=== PATIENT | female | born 1930 | race Caucasian/White ===

== ENCOUNTER 2016-09-13 09:41 | Emergency (ER) | payer MEDICARE, BC ==
[2016-09-13 09:53] VITALS: TEMP 98.5; BMI 34.4
[2016-09-13 10:15] LABS: AUTOMATED BASOPHIL 0.3 % (0-2); AUTOMATED EOSINOPHIL 0.9 % (0-5); AUTOMATED LYMPH 15.8 % (17-44); AUTOMATED MONOCYTE 5.3 % (3-10); AUTOMATED NEUTROPHIL 77.7 % (45-76); MPV 6.7 fL (7.4-10.4)
[2016-09-13 10:18] LABS: RBC/URINE 0-2 (0-5); WBC/URINE 30-40 (0-5)
[2016-09-13 10:20] LABS: LEUKOCYTES/URINE NEG (NEGATIVE); NITRITE/URINE NEG (NEGATIVE); URINE OCCULT BLOOD NEG (NEG/TRACE)
[2016-09-13 10:31] LABS: BLOOD UREA NITROGEN 12 MG/DL (7-17); CALCIUM 9.8 MG/DL (8.4-10.2); CALCULATED OSMOLALITY 261 MOs/Kg (270-290); CHLORIDE 97 mEq/L (98-107); GLUCOSE 150 MG/DL (70-99); PARTIAL THROMB. TIME 26.8 SEC (22-35); SODIUM LEVEL 134 mEq/L (137-146); TOTAL PROTEIN 7.4 G/DL (6.3-8.2)
--- NOTE | 2016-09-13 13:01 | EDPRACDOC ---
- General Information Chief Complaint: Abdominal Pain Stated Complaint: ABD PAIN, DARK STOOL Time Seen by Provider: 09/13/16 11:53 Information Source: Patient Mode Of Arrival: Car Home Medications: Home Medications Acetaminophen [Tylenol Extra Strength] 1,000 mg PO BID PRN 11/16/13 Clopidogrel Bisulfate [Plavix] 75 mg PO QAM 11/16/13 FA/Multivits-Min/Lycopene/Lut [Sentry Senior Multivit Caplet] 1 tab PO QAM 11/16 Nizatidine 150 mg PO HS 11/16/13 Pantoprazole Sodium [Protonix] 40 mg PO QAM 11/16/13 Perphenazine/Amitriptyline HCl [Perphen-Amitrip 2 mg-10 mg Tab] 1 tab PO BID Potassium Chloride [Klor-Con M20] 20 meq PO BID 11/16/13 Spironolact/Hydrochlorothiazid [Spironolactone-Hctz 25-25 Tab] 1 tab PO QAM Polyethylene Glycol 3350 [Miralax] 17 gm PO DAILY PRN #10 powd.pack 11/17/13 Alendronate Sodium [Fosamax] 70 mg PO Q7D 08/15/16 Loratadine [Claritin] 10 mg PO DAILY PRN 08/15/16 Losartan Potassium [Cozaar] 100 mg PO QAM 08/15/16 Metoprolol Tartrate [Lopressor] 12.5 mg PO QAM 08/15/16 Simvastatin [Zocor] 20 mg PO HS 08/15/16 Ascorbate Calcium/Bioflav [Betzaida-C 500 mg Tablet (500 mg/200 mg)] 1 tab PO BID 09/13/16 Calcium Carbonate/Vitamin D3 [Calcium 600 + D3 Softgel] 1 cap PO DAILY 09/13/16 Pantoprazole Sodium [Protonix] 40 mg PO DAILY #30 tab 09/13/16 Ranitidine HCl [Zantac] 150 mg PO DAILY #60 tablet 09/13/16 Tramadol HCl 50 mg PO Q6 PRN #20 tablet 09/13/16 Vit A/C/E AC/Znox/Cupric Oxide [Eye Vitamin-Minerals Tablet] 1 tab PO DAILY Allergies/Adverse Reactions: Allergies Allergy/AdvReac Type Severity Reaction Status Date / Time acetaminophen Allergy Unknown Verified 08/15/16 13:43 [From Darvocet-N 100] caffeine [From Panlor SS] Allergy Unknown Verified 08/15/16 13:43 citalopram hydrobromide Allergy Unknown Verified 08/15/16 13:43 [From Celexa] codeine Allergy Unknown Verified 08/15/16 13:43 diclofenac sodium Allergy Unknown Verified 08/15/16 13:43 [From Arthrotec 50] dihydrocodeine bitartrate Allergy Unknown Verified 08/15/16 13:43 [From Panlor SS] doxycycline Allergy Unknown Verified 08/15/16 13:43 erythromycin base Allergy Unknown Verified 08/15/16 13:43 [Erythromycin Base] Iodinated Contrast Media - Allergy Rash-Locali Verified 08/15/16 13:43 IV Dye zed iodine Allergy Unknown Verified 08/15/16 13:43 lansoprazole [From Prevacid] Allergy Unknown Verified 08/15/16 13:43 lisinopril [From Zestril] Allergy Unknown Verified 08/15/16 13:43 metoclopramide HCl Allergy Unknown Verified 08/15/16 13:43 [From Reglan] misoprostol Allergy Unknown Verified 08/15/16 13:43 [From Arthrotec 50] Penicillins Allergy Unknown Verified 08/15/16 13:43 Tetracyclines Allergy See Unverified 08/15/16 13:43 Comments MOLDS Allergy Unknown Uncoded 08/15/16 13:43 - History of Present Illness Onset: 3 DAYS HPI: C/o epigastric pain and black tarry stools getting worse x 3 days. Denies fever , N/V/D, dizzyness, CP, sob, change in urine. Pt on plavix. Surgical hx = mike , hernia repair, hysterectomy, all over 5 yrs ago. Pain Location: Reports: Epigastric Pain Context: Reports: Spontaneous Pain Severity: Moderate Pain Quality: Reports: Burning Pain Radiation: Reports: No Radiation Control Method: Reports: Hysterectomy Adult Abdominal History: Reports: Abdominal Surgery Female Abdominal History: Reports: Abdominal Surgery Modifying Factors: improves with: Nothing Oral Intake: Decreased Urinary Output: Normal ED Past Medical History - History Reviewed Yes Nurses notes reviewed and agree except as marked - Patient Medical History Neurological History: Reports: Cerebrovascular Accident (TIA) Cardiac History: Reports: Hypertension, Cardiac Catheterization Musculoskeletal History: Reports: Arthritis Psychological History: Reports: Depression Systemic History: Reports: Anemia, Diabetes. Denies: Cancer Surgical History: Reports: Cholecystectomy, Hysterectomy, Cardiac Catheterization, Hernia Surgery, Tonsillectomy/Adnoidectomy - Family Medical History Reports: Hypertension (parents), Cardiac Disorders (mother). Denies: Diabetes, Cancer, Stroke - Social Medical History Smoking Status: Never smoker EDM Review of Systems - Review of Systems ROS Negative Except as Marked: Yes All systems reviewed and were negative except as marked Gastrointestinal: Pain - Physical Exam Constitutional: Alert Oriented to: Time, Person, Place Last recorded Vital Signs: Last Vital Signs Temp 98.5 F 09/13/16 09:48 Pulse 81 09/13/16 15:07 Resp 18 09/13/16 15:07 BP 147/77 09/13/16 15:07 Pulse Ox 96 09/13/16 15:07 Oxygen Pulse Oxygen Saturation 96 O2 Device Room Air Oxygen Flow Rate Fraction of Inspired Oxygen ( FIO2) - HEENT Head: Normal Eye Exam: negative: Conjunctival Injection, Scleral Icterus Oropharynx: negative: Drooling TMJ: Normal Nose: No Symptoms Reported Neck: Normal - Respiratory/Cardiovascular Respiratory: Normal - CTA Cardiovascular: Normal - GI Auscultation: Normal Palpation: Normal Tenderness: Moderate, Epigastric Quiroz's Sign: Negative - Musculoskeletal Back: Normal Extremities: Normal - Integumentary Skin: Normal - Neurologic Mood Description: Normal Thought: Coherent Perception: Normal - Results 09/13/16 09:58 09/13/16 09:58 WBC 6.9 xk/uL (3.8-10.8) 09/13/16 09:58 RBC 4.87 xM/uL (4.20-5.40) 09/13/16 09:58 Hgb 14.8 g/dL (12.0-16.0) 09/13/16 09:58 Hct 43.5 % (36-47) 09/13/16 09:58 MCV 89 fL (81-99) 09/13/16 09:58 MCH 30.5 pg (27-32) 09/13/16 09:58 MCHC 34.2 g/dl (33-36) 09/13/16 09:58 RDW 13.2 % (11.5-14.5) 09/13/16 09:58 Plt Count 231 xk/uL (130-400) 09/13/16 09:58 MPV 6.7 fL (7.4-10.4) L 09/13/16 09:58 Neut % (Auto) 77.7 % (45-76) H 09/13/16 09:58 Lymph % (Auto) 15.8 % (17-44) L 09/13/16 09:58 [place] % (Auto) 5.3 % (3-10) 09/13/16 09:58 Eos % (Auto) 0.9 % (0-5) 09/13/16 09:58 Baso % (Auto) 0.3 % (0-2) 09/13/16 09:58 Absolute Neuts (auto) 5.31 xk/uL (1.7-8.2) 09/13/16 09:58 Absolute Lymphs (auto) 1.04 xk/uL (0.65-4.75) 09/13/16 09:58 PT 10.7 SEC (9.2-11.2) 09/13/16 09:58 INR 1.0 09/13/16 09:58 APTT 26.8 SEC (22-35) 09/13/16 09:58 Sodium 134 mEq/L (137-146) L 09/13/16 09:58 Potassium 4.1 mEq/L (3.5-5.1) 09/13/16 09:58 Chloride 97 mEq/L (98-107) L 09/13/16 09:58 Carbon Dioxide 21 mMOL/L (22-33) L 09/13/16 09:58 Anion Gap 20 mEq/L (8-16) H 09/13/16 09:58 BUN 12 MG/DL (7-17) 09/13/16 09:58 Creatinine 0.60 MG/DL (0.52-1.04) 09/13/16 09:58 Estimated GFR (MDRD) > 60 mL/min (>=60) 09/13/16 09:58 Glucose 150 MG/DL (70-99) H 09/13/16 09:58 Calculated Osmolality 261 MOs/Kg (270-290) L 09/13/16 09:58 Calcium 9.8 MG/DL (8.4-10.2) 09/13/16 09:58 Total Bilirubin 0.7 MG/DL (0.2-1.3) 09/13/16 09:58 AST 33 IU/L (14-36) 09/13/16 09:58 ALT 27 IU/L (9-52) 09/13/16 09:58 Alkaline Phosphatase 66 IU/L (55-165) 09/13/16 09:58 Total Protein 7.4 G/DL (6.3-8.2) 09/13/16 09:58 Albumin 4.5 G/DL (3.5-5.0) 09/13/16 09:58 Lipase 55 U/L (23-300) 09/13/16 09:58 Urine Color Yellow 09/13/16 10:02 Urine Clarity Clear 09/13/16 10:02 Urine pH 7.0 (5.0-8.0) 09/13/16 10:02 Ur Specific [place] 1.005 (1.003-1.035) 09/13/16 10:02 Urine Protein Neg (NEG/TRACE) 09/13/16 10:02 Urine Glucose (UA) Neg (NEGATIVE) 09/13/16 10:02 Urine Ketones Neg (NEGATIVE) 09/13/16 10:02 Urine Occult Blood Neg (NEG/TRACE) 09/13/16 10:02 Urine Nitrite Neg (NEGATIVE) 09/13/16 10:02 Urine Bilirubin Neg (NEGATIVE) 09/13/16 10:02 Urine Urobilinogen 0.2 MG/DL (0-1) 09/13/16 10:02 Ur Leukocyte Esterase Neg (NEGATIVE) 09/13/16 10:02 Urine RBC 0-2 (0-5) 09/13/16 10:02 Urine WBC 30-40 (0-5) H 09/13/16 10:02 Ur Epithelial Cells 1+ 09/13/16 10:02 Urine Bacteria 1+ (NEG/FEW) H 09/13/16 10:02 Blood Type A POSITIVE 09/13/16 09:58 Antibody Screen Negative 09/13/16 09:58 Lab Results 09/13/16 09/13/16 09/13/16 10:02 09:58 09:58 WBC RBC Hgb Hct MCV MCH MCHC RDW Plt Count MPV Neut % (Auto) Lymph % (Auto) [place] % (Auto) Eos % (Auto) Baso % (Auto) Absolute Neuts (auto) Absolute Lymphs (auto) PT 10.7 INR 1.0 APTT 26.8 Sodium Potassium Chloride Carbon Dioxide Anion Gap BUN Creatinine Estimated GFR (MDRD) Glucose Calculated Osmolality Calcium Total Bilirubin AST ALT Alkaline Phosphatase Total Protein Albumin Lipase 55 Urine Color Yellow Urine Clarity Clear Urine pH 7.0 Ur Specific [place] 1.005 Urine Protein Neg Urine Glucose (UA) Neg Urine Ketones Neg Urine Occult Blood Neg Urine Nitrite Neg Urine Bilirubin Neg Urine Urobilinogen 0.2 Ur Leukocyte Esterase Neg Urine RBC 0-2 Urine WBC 30-40 H Ur Epithelial Cells 1+ Urine Bacteria 1+ H Blood Type Antibody Screen 09/13/16 09/13/16 09/13/16 09:58 09:58 09:58 WBC 6.9 RBC 4.87 Hgb 14.8 Hct 43.5 MCV 89 MCH 30.5 MCHC 34.2 RDW 13.2 Plt Count 231 MPV 6.7 L Neut % (Auto) 77.7 H Lymph % (Auto) 15.8 L [place] % (Auto) 5.3 Eos % (Auto) 0.9 Baso % (Auto) 0.3 Absolute Neuts (auto) 5.31 Absolute Lymphs (auto) 1.04 PT INR APTT Sodium 134 L Potassium 4.1 Chloride 97 L Carbon Dioxide 21 L Anion Gap 20 H BUN 12 Creatinine 0.60 Estimated GFR (MDRD) > 60 Glucose 150 H Calculated Osmolality 261 L Calcium 9.8 Total Bilirubin 0.7 AST 33 ALT 27 Alkaline Phosphatase 66 Total Protein 7.4 Albumin 4.5 Lipase Urine Color Urine Clarity Urine pH Ur Specific [place] Urine Protein Urine Glucose (UA) Urine Ketones Urine Occult Blood Urine Nitrite Urine Bilirubin Urine Urobilinogen Ur Leukocyte Esterase Urine RBC Urine WBC Ur Epithelial Cells Urine Bacteria Blood Type A POSITIVE Antibody Screen Negative - Diagnostic Imaging Abdomen Image interpreted by: Radiologist 09/13/16 14:43 EXAM: DG ABDOMEN ACUTE W/ 1V CHEST COMPARISON: CT of the abdomen and pelvis on 11/17/2013 FINDINGS: There is no evidence of dilated bowel loops or free intraperitoneal air. No radiopaque calculi or other significant radiographic abnormality is seen. Stable spondylosis of the lumbar spine. Heart size and mediastinal contours are within normal limits. There is no evidence of pulmonary edema, consolidation, pneumothorax, nodule or pleural fluid. IMPRESSION: Negative abdominal radiographs. No acute cardiopulmonary disease. Electronically Signed By: Roney Coleman M.D. On: 09/13/2016 14:35 - Additional Information hemoccult NEG Decision Time to Discharge: 14:43 - Departure Disposition: Home Condition: Stable Final Diagnosis: Gastric ulcer Qualifiers: Gastric ulcer chronicity: unspecified ulcer chronicity Gastric ulcer complication status: without hemorrhage or perforation Qualified Code(s): K25.9 - Gastric ulcer, unspecified as acute or chronic, without hemorrhage or perforation Instructions: Peptic Ulcer (ED), Acute Abdominal Pain (ED) Education/Counseling Given To: Patient, Family Member Education/Counseling Given Regarding: Diagnosis, Treatment, Prognosis, Follow Up Referrals: Theresa Lawler MD [Primary Care Provider] - One Week Cyrus Gottlieb MD [Staff Physician] - One Week Prescriptions: Pantoprazole Sodium [Protonix] 40 mg PO DAILY #30 tab Ranitidine HCl [Zantac] 150 mg PO DAILY #60 tablet Tramadol HCl 50 mg PO Q6 PRN #20 tablet PRN Reason: Pain Additional Instructions: Follow up with primary care and GI specialist Dr Garcia. Continue to take home rx for protonix. Return to ED for any new or worsening symptoms.
--- NOTE | 2016-09-13 14:38 | DIRPT ---
CLINICAL DATA: Epigastric abdominal pain. EXAM: DG ABDOMEN ACUTE W/ 1V CHEST COMPARISON: CT of the abdomen and pelvis on 11/17/2013 FINDINGS: There is no evidence of dilated bowel loops or free intraperitoneal air. No radiopaque calculi or other significant radiographic abnormality is seen. Stable spondylosis of the lumbar spine. Heart size and mediastinal contours are within normal limits. There is no evidence of pulmonary edema, consolidation, pneumothorax, nodule or pleural fluid. IMPRESSION: Negative abdominal radiographs. No acute cardiopulmonary disease. Electronically Signed By: Roney Coleman M.D. On: 09/13/2016 14:35
[2016-09-13 15:33] VITALS: BP 147/77; PULSE 81
== END 2016-09-13 15:07 | disposition home or self-care (01) ==
LOC: ED 09:41
DX: K25.9 Gastric ulcer, unspecified as acute or chronic, without hemorrhage or perforation (principal)
CPT/HCPCS: 36415; 74022; 80053; 81001; 82270; 83690; 85025; 85610; 85730; 86850; 86900; 86901; 99284